=== PATIENT | female | born 2005 | race Caucasian/White ===

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

== ENCOUNTER 2024-11-04 22:27 | Emergency (ER) | payer OTHER, SELFPAY ==
[2024-11-04 22:43] VITALS: BP 145/86; PULSE 83; RESP 16; TEMP 36.9; O2SAT 98; BMI 37.6
--- NOTE | 2024-11-04 23:05 | ED.GENADULT ---
HPI - General Adult General Chief complaint: Psychiatric Problem/Disorder Stated complaint: Suicidal Ideation Time Seen by Provider: 11/04/24 23:05 History of Present Illness HPI narrative: pt presents with father elaine, tearful during triage. pt has been having increasing SI for the last month, thoughts of self strangulation. no specific trigger, does have some trouble with friend relationships. pt lives in dorm, attends [employer]. [employer] [employer] [place] seeing therapist Pedro who recommend her to be evaluated further or have medication adjustment. has done outpt therapy, never inpt. pt states she would feel best being able to continue her normal life routine and add in out pt therapy. pt does state she would feel safe going back to her dorm knowing she has more resources for success. pt denies any pain or other medical concern . 19-year-old young man presenting to the emergency department with her father with concern of suicidal ideation. She has been over the last few weeks experiencing increased thoughts of self-harm particularly strangling her suffocating herself. Has never attempted to kill herself before a but has engaged in some cutting, biting or scratching behavior. Did do this a few weeks ago and then feels increasingly guilty about it. Does see a therapist 2 times a week. The evaluation here is prompted by these increasing symptoms and hope for some medication adjustments; a next plan. Has struggled with not liking herself for years. Has been diagnosed with depression and anxiety as well as some OCD. 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 Has been increasingly struggling to get friends to get back with her/schedule something to do. We then begins to feel that she is the problem. Last night had probably 5-1/2 hours of sleep but the night before that probably 8 hours. Generally though sleep has not been great. Tends to get up between 530 and 7. Does not drink alcohol/use substances. She does not have hallucinations but can feel that thoughts are not her own. Is looking forward to some time with friends and a movie this weekend but begins to question whether not she is really wanted. Is accompanied here by her father who is a a resource recently. She has been calling him more often. Chrissy is from [place] and attending [employer]. Related Data Home Medications ?Medication ?Instructions ?Recorded ?Confirmed desvenlafaxine succinate 100 mg 100 mg PO DAILY 07/29/23 11/04/24 tablet,extended release 24 hr naltrexone 1.5 mg capsule 3 mg PO DAILY 07/29/23 11/04/24 propranolol 60 mg capsule,24 60 mg PO DAILY 07/29/23 11/04/24 hr,extended release quetiapine 100 mg tablet 200 mg PO HS 07/29/23 11/04/24 drospirenone 3 mg-ethinyl 1 tab PO DAILY 11/04/24 11/04/24 estradiol 0.02 mg tablet metformin 500 mg tablet,extended 1,500 mg PO DAILY 11/04/24 11/04/24 release 24 hr Allergies Allergy/AdvReac Type Severity Reaction Status Date / Time peanut Allergy Anaphylaxis Verified 11/04/24 22:53 Review of Systems Status of ROS: Reports: 6 or more systems reviewed and unremarkable except as noted in History and below PFSH PFS Family History Paternal Grandmother Stroke Aunt Breast cancer Mother Thyroid disease Social History Narrative: Student at [employer] Nonsmoker Denies alcohol or illicit drug use Smoking Status: Never smoker Do you use any of these nicotine containing products: None Non-prescribed substance use: denies use service: No Exam Narrative: Exam Narrative: Very pleasant. Thoughtful. Introspective. Speech isn't pressured or slurred. Mood is sad affect appropriate. She is frequently quietly tearful. Looks like there might be a little evidence of some older self-harm on her left forearm. Heart in regular rate. She is breathing easily. Cranial nerves 2-12 are intact. Const: Vital Signs, click to edit/add: Vital Signs - 24 hr 11/04/24 22:43 Temperature 98.5 F Pulse Rate [Pulse Oximeter] 83 Respiratory Rate 16 Blood Pressure [Ri ght Upper Arm] 145/86 H Pulse Oximetry 98 Oxygen Delivery Me thod Room Air Documenting provider has reviewed patient's vital signs: yes Course Vital Signs Vital signs: Initial Vital Signs Temperature 98.5 F 11/04/24 22:43 Temperature Source Temporal Artery Scan 11/04/24 22:43 Pulse Rate 83 11/04/24 22:43 Respiratory Rate 16 11/04/24 22:43 Blood Pressure 145/86 H 11/04/24 22:43 Blood Pressure Mean 105 11/04/24 22:43 Blood Pressure Position Sitting 11/04/24 22:43 Pulse Oximetry 98 11/04/24 22:43 Oxygen Delivery Method Room Air 11/04/24 22:43 Vital Signs Temperature 98.5 F 11/04/24 22:43 Pulse Rate 83 11/04/24 22:43 Respiratory Rate 16 11/04/24 22:43 Blood Pressure 145/86 H 11/04/24 22:43 Pulse Oximetry 98 11/04/24 22:43 Oxygen Delivery Method Room Air 11/04/24 22:43 Temperature 98.5 F 11/04/24 22:43 Pulse Rate 83 11/04/24 22:43 Respiratory Rate 16 11/04/24 22:43 Blood Pressure 145/86 H 11/04/24 22:43 Pulse Oximetry 98 11/04/24 22:43 Oxygen Delivery Method Room Air 11/04/24 22:43 Medical Decision Making MDM Narrative Medical decision making narrative: These suicidal ideations certainly are distressing. We did discuss potential admission but she thinks that things make things worse. She really is looking for more outpatient management and that this would be helpful. She does exhibit foresight. Has supportive family as evidenced by her father. Has friendships. I did discuss availability of therapist/psychiatrist referral through our facility. She would be hoping for perhaps some medication management. In the meantime could make available some lorazepam as a temporary measure. She would appreciate this follow-up and medication addition. Believes herself safe to leave the emergency department. Of note upon review of record, a year and a half ago did sustain a concussion. See patient discharge plan for further discussion You seem to be a aramis young woman. It was nice to meet you. I hope you can really begin to see the good. Please follow-up on Friday with Juan Ramon Watson as scheduled. In the meantime, as a temporary measure, I am prescribing some Ativan from [facility] for elevated levels of anxiety. In follow-up, medications like hydroxyzine (mention this partly because you are already taking propranolol) can be helpful as well. Otherwise plan something fun to do this week with friends or family; sounds like a movie was planned at least for the weekend. Practice good sleep hygiene to continue to try to get quality and regular sleep. Continue to experience the morning sunlight. Try to get in a little heart pumping activity daily. If after talking to friends, family, therapist/psychiatrist, you still feel unsafe, please return to the emergency department. Medical Records Medical records reviewed: Yes I reviewed the patient's medical records Discharge Plan Discharge Clinical Impression: Sadness, Depression, Anxiety Patient Disposition: Home w/ Parent or Adult Condition: Stable Additional Instructions: You seem to be a ar[place] young woman. It was nice to meet you. I hope you can really begin to see the good. Please follow-up on Friday with Juan Ramon Watson as scheduled. In the meantime, as a temporary measure, I am prescribing some Ativan from [facility] for elevated levels of anxiety. In follow-up, medications like hydroxyzine (mention this partly because you are already taking propranolol) can be helpful as well. Otherwise plan something fun to do this week with friends or family; sounds like a movie was planned at least for the weekend. Practice good sleep hygiene to continue to try to get quality and regular sleep. Continue to experience the morning sunlight. Try to get in a little heart pumping activity daily. If after talking to friends, family, therapist/psychiatrist, you still feel unsafe, please return to the emergency department. Prescriptions: No Action desvenlafaxine succinate 100 mg tablet extended release 24 hr 100 mg PO DAILY naltrexone 1.5 mg capsule 3 mg PO DAILY propranolol 60 mg capsule,extended release 24 hr 60 mg PO DAILY quetiapine 100 mg tablet 200 mg PO HS metformin 500 mg tablet extended release 24 hr 1,500 mg PO DAILY drospirenone-ethinyl estradiol 3-0.02 mg tablet 1 tab PO DAILY Follow Up/Referrals: Provider,Not a Local [Non-Staff] - Stand Alone Forms: Constant Contact Info Instructions
== END 2024-11-05 01:43 | disposition home or self-care (01) ==
PROVIDERS: Emergency Provider Family Medicine; PCP Physician Assistant Medical
DX: R45.851 Suicidal ideations (principal); F32.A Depression, unspecified; F41.8 Other specified anxiety disorders
CPT/HCPCS: 99283; 99284